=== PATIENT | male | born 1980 | race Caucasian/White ===

== ENCOUNTER 2018-11-19 05:20 | Emergency (ER) | payer BC ==
[~2018-11-19] VITALS: Ht 182.9 cm; Wt 109.0 kg
--- NOTE | 2018-11-19 05:30 | NUR ---
Dr. Soliz notified of patient's condition. No orders at this time. [facility] protocol orders placed.
[2018-11-19 06:05] LABS: BASOPHILS # (AUTO) 0.1 X10'3 (0-0.2); BASOPHILS % (AUTO) 0.6 % (0-1); EOSINOPHILS # (AUTO) 0.3 X10'3 (0-0.9); HEMATOCRIT 42.8 % (42.0-52.0); HEMOGLOBIN 14.5 g/dl (14.0-17.9); LYMPHOCYTES # (AUTO) 2.6 X10'3 (1.1-4.8); LYMPHOCYTES % (AUTO) 27.5 % (21-51); MEAN CORPUSCULAR HEMOGLOBIN 30.1 PG (27.0-31.0); MEAN CORPUSCULAR VOLUME 88.6 FL (78-98); MEAN PLATELET VOLUME 7.3 FL (7.4-10.4); MONOCYTES # (AUTO) 0.7 X10'3 (0-0.9); MONOCYTES % (AUTO) 7.3 % (2-12); NEUTROPHILS # (AUTO) 5.9 X10'3 (1.8-7.7); NEUTROPHILS % (AUTO) 61.6 % (42-75); PLATELET COUNT 294 X10'3 (140-440); RED BLOOD COUNT 4.83 X10'6 (4.70-6.10); RED CELL DISTRIBUTION WIDTH 13.4 % (11.5-14.5); WHITE BLOOD COUNT 9.6 X10'3 (4.5-11.0)
[2018-11-19 06:28] LABS: ALANINE AMINOTRANSFERASE 57 U/L (12-78); ALBUMIN 3.9 G/DL (3.4-5.0); ALBUMIN/GLOBULIN RATIO 1.3 (1.1-1.5); ALKALINE PHOSPHATASE 76 IU/L (46-116); ANION GAP 8 (8-16); ASPARTATE AMINO TRANSFERASE 20 U/L (10-37); BILIRUBIN,TOTAL 0.3 MG/DL (0.1-1.0); BLOOD UREA NITROGEN 17 MG/DL (7-18); BUN/CREATININE RATIO 14.9 (5.4-32.0); CALCIUM 8.7 MG/DL (8.5-10.1); CHLORIDE 106 MMOL/L (99-107); CREATININE 1.14 MG/DL (0.60-1.10); GLUCOSE 117 MG/DL (70-104); SODIUM 139 MMOL/L (135-145); TOTAL CARBON DIOXIDE 25.4 MMOL/L (24-32); TOTAL PROTEIN 6.9 G/DL (6.4-8.2); eGFR 73 ML/MIN
--- NOTE | 2018-11-19 07:01 | NUR ---
at bedside. patient reports that he woke up at 0445 w/ a nose bleed. No prior hx of nose bleeds. Patient went into bathroom and stated he had poor hand coordination when trying to wipe his nose. Pt. had c/o of dizziness and slurred speech w/ a ringing in his left ear and right arm tingling. Pt states symptoms only lasted a few minutes, until symptoms resolved. Patient reports no current symptoms. Leodan. [employer] are equal. No drooping to face. Speech is clear and patient states he is no longer dizzy.
--- NOTE | 2018-11-19 07:57 | NUR ---
MRI Checklist completed and faxed to MRI.
[2018-11-19] MEDS ORDERED: aspirin 325mg tablet PO ONE (08:05)
--- NOTE | 2018-11-19 08:06 | NUR ---
Patient to MRI. Will medicate w/ aspirin upon return.
[2018-11-19 09:54] VITALS: BP 121/74
== END 2018-11-19 09:56 | disposition home or self-care (01) ==
LOC: ER 05:21
DX: G45.9 Transient cerebral ischemic attack, unspecified (principal); R04.0 Epistaxis
CPT/HCPCS: 36415; 70450; 70544; 70547; 70551; 71045; 80053; 82948; 84484; 85025; 93005; 99284

== ENCOUNTER 2019-10-17 20:39 | Emergency (ER) | payer BC ==
[~2019-10-17] VITALS: Ht 182.9 cm; Wt 109.1 kg
[2019-10-17 21:51] LABS: BASOPHILS # (AUTO) 0.1 X10'3 (0-0.2); BASOPHILS % (AUTO) 1.2 % (0-1); EOSINOPHILS # (AUTO) 0.2 X10'3 (0-0.9); HEMATOCRIT 40.8 % (42.0-52.0); HEMOGLOBIN 13.9 g/dl (14.0-17.9); LYMPHOCYTES % (AUTO) 28.6 % (21-51); MEAN CORPUSCULAR HEMOGLOBIN 30.4 PG (27.0-31.0); MEAN CORPUSCULAR HGB CONC 34.1 g/dL (33.0-36.5); MEAN CORPUSCULAR VOLUME 89.2 FL (78-98); MEAN PLATELET VOLUME 6.9 FL (7.4-10.4); MONOCYTES # (AUTO) 0.6 X10'3 (0-0.9); MONOCYTES % (AUTO) 8.2 % (2-12); NEUTROPHILS # (AUTO) 4.1 X10'3 (1.8-7.7); PLATELET COUNT 301 X10'3 (140-440); RED BLOOD COUNT 4.57 X10'6 (4.70-6.10); RED CELL DISTRIBUTION WIDTH 13.2 % (11.5-14.5)
[2019-10-17 22:04] LABS: ALANINE AMINOTRANSFERASE 63 U/L (12-78); ALBUMIN/GLOBULIN RATIO 1.3 (1.1-1.5); ALKALINE PHOSPHATASE 60 IU/L (46-116); ANION GAP 9 (8-16); ASPARTATE AMINO TRANSFERASE 22 U/L (10-37); BILIRUBIN,TOTAL 0.2 MG/DL (0.1-1.0); BLOOD UREA NITROGEN 17 MG/DL (7-18); BUN/CREATININE RATIO 13.3 (5.4-32.0); CALCIUM 9.1 MG/DL (8.5-10.1); CHLORIDE 106 MMOL/L (99-107); CREATININE 1.28 MG/DL (0.60-1.10); GLUCOSE 86 MG/DL (70-104); MAGNESIUM 2.2 MG/DL (1.5-2.4); POTASSIUM 3.6 MMOL/L (3.5-5.1); SODIUM 141 MMOL/L (135-145); TOTAL CARBON DIOXIDE 26.4 MMOL/L (24-32); TOTAL PROTEIN 7.1 G/DL (6.4-8.2); eGFR 63 ML/MIN
[2019-10-17 22:44] VITALS: BP 109/71
== END 2019-10-17 22:45 | disposition home or self-care (01) ==
LOC: ER 20:39
DX: R07.89 Other chest pain (principal); R42 Dizziness and giddiness; R00.2 Palpitations
CPT/HCPCS: 36415; 71045; 80053; 83735; 84484; 85025; 93005; 99285